=== PATIENT | female | born 1955 | race Caucasian/White ===

== ENCOUNTER → 2017-06-27 | Outpatient (CLI) | payer BC ==
--- NOTE | 2017-06-27 09:06 | CT ---
EXAMINATION TYPE: CT soft tissue neck w con DATE OF EXAM: 06/27/2017 HISTORY: Swelling, mass lump right side. Patient can currently not feel the lump and therefore no BB was placed. COMPARISON: 06/03/[address] DLP: 555.50 mGycm. Automated Exposure Control for Dose Reduction was Utilized. TECHNIQUE: CT scan of the neck is performed with IV Contrast, patient injected with 100 ml mL of Omn ipaque 300, axial images are obtained, coronal and sagittal reformatted images are reviewed. FINDINGS: Airway: Airways patent with no gross abnormality. Minimal dependent atelectasis is seen within the ri ght upper lobe. Parotid/submandibular glands: Parotids and submandibular glands are symmetric without surrounding inf lammatory change. Incidental note is made of extension of the left parotid gland anterior to the mass eter muscle. Carotid/Vascular Structures: Very minimal calcific atheromatous changes are seen of the common caroti d arteries. No significant stenosis within either visualized carotid arterial system. The vertebral a rteries are codominant and appear patent. No evidence of dissection, aneurysm or focal stenosis. Ther e is a normal anatomic branch pattern of the great vessels. Osseous Structures: There is slight rightward nasal bone deviation and middle turbinate nonobstructiv e jenelle bullosa. Paranasal sinuses are well aerated and their visualized portions as are the mastoid air cells. Mild multilevel degenerative changes demonstrated as uncovertebral hypertrophy and facet arthropathy are seen. No gross evidence of spinal canal stenosis. Osseous structures appear intact. N o prevertebral soft tissue swelling. Other: Few nonenlarged lymph nodes are seen surrounding the right submandibular gland and in the subm ental location, possibly related to the patient's abnormality. These measure up to 5 mm in short axis , within normal limits, and maintaining their normal reniform shape. Thyroid gland is unremarkable. N o supraclavicular adenopathy. Few nonenlarged anterior and posterior cervical chain lymph nodes are a lso visualized. Prominent but nonenlarged right paratracheal lymph node measures 8 mm in short axis. Scant residual t hymic tissue seen within the anterior superior mediastinum IMPRESSION: No CT finding to correspond to the patient's right neck swelling or palpable abnormality . Few nonenlarged submental and submandibular regular-appearing lymph nodes are noted.
== END | disposition home or self-care (01) ==
LOC: RADCTMAIN 08:02
PROVIDERS: ATTEND Otolaryngology
DX: R22.1 Localized swelling, mass and lump, neck (principal)
CPT/HCPCS: 70491; Q9967

== ENCOUNTER 2017-12-19 09:12 | Emergency (ER) | payer BC ==
[2017-12-19] MEDS ORDERED: ASPIRIN 81 MG PO STA (09:33)
[2017-12-19] MEDS ORDERED: MORPHINE SULFATE 2 MG/ML SYRINGE IVP STA (09:33)
[2017-12-19] MEDS ORDERED: NITROGLYCERIN OINT 1 INCH/GM PACKET TOPICAL STA (09:33)
[2017-12-19] MEDS ORDERED: SODIUM CHLORIDE 0.9% 1,000 ML IV STA (09:33)
[2017-12-19] MEDS ORDERED: ONDANSETRON 4 MG/2 ML VIAL IVP STA (09:33)
--- NOTE | 2017-12-19 10:33 | XR ---
EXAMINATION TYPE: XR chest 2V DATE OF EXAM: 12/19/2017 COMPARISON: 05/27/2016 TECHNIQUE: PA and lateral views submitted. HISTORY: Chest pain FINDINGS: The lungs are clear and there is no pneumothorax, pleural effusion, or focal pneumonia. Somewhat co arsened interstitium can be associated with chronic interstitial lung disease or bronchitis. Hypertro phic change of the spine noted. Diffuse osteopenia and arthropathy of the shoulders. IMPRESSION: 1. Coarsened interstitium can be associated with bronchitis or interstitial lung disease correlate cl inically..
[2017-12-19 10:35] LABS: ALT 30 U/L (9-52); AST 23 U/L (14-36); Albumin 4.1 g/dL (3.5-5.0); Alkaline Phosphatase 89 U/L (38-126); Anion Gap 9 mmol/L; Blood Urea Nitrogen 23 mg/dL (7-17); Calcium 9.6 mg/dL (8.4-10.2); Carbon Dioxide 27 mmol/L (22-30); Chloride 106 mmol/L (98-107); Glucose 89 mg/dL (74-99); Magnesium 2.1 mg/dL (1.6-2.3); Potassium 4.7 mmol/L (3.5-5.1); Sodium 142 mmol/L (137-145); Total Bilirubin 0.3 mg/dL (0.2-1.3); Total Protein 6.8 g/dL (6.3-8.2)
[2017-12-19 10:37] LABS: INR 1.1 (<1.2); Partial Thromboplastin Time 23.7 sec (22.0-30.0); Prothrombin Time 10.5 sec (9.0-12.0)
[2017-12-19 10:48] LABS: Basophils # (A) 0.1 k/uL (0-0.2); Basophils % (A) 1 %; Creatine Kinase 79 U/L (30-135); Eosinophils # (A) 0.1 k/uL (0-0.7); Eosinophils % (A) 2 %; HCT 40.5 % (34.0-46.0); HGB 12.7 gm/dL (11.4-16.0); Lymphocytes # (A) 3.7 k/uL (1.0-4.8); Lymphocytes % (A) 47 %; MCHC 31.5 g/dL (31.0-37.0); MCV 95.4 fL (80.0-100.0); Mean Platelet Volume 9.8; Monocytes # (A) 0.4 k/uL (0-1.0); Monocytes % (A) 6 %; Neutrophils # (A) 3.4 k/uL (1.3-7.7); Neutrophils % (A) 42 %; Platelet Count 285 k/uL (150-450); RBC 4.24 m/uL (3.80-5.40); RDW 14.2 % (11.5-15.5)
[2017-12-19 11:01] LABS: Creatine Kinase MB 0.6 ng/mL (0.0-2.4); Troponin I <0.012 ng/mL (0.000-0.034)
[2017-12-19 11:21] LABS: D-Dimer 0.73 mg/L FEU (<0.60)
--- NOTE | 2017-12-19 14:33 | ED ---
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., She has no history of heart disease she is also short winded and pain gets worse when she takes a deep breath pain is over 10 right now she denies any tobacco use no alcohol use her mom had heart disease late in the 80s of system is otherwise negative - Related Data Home Medications Medication Instructions Recorded Confirmed No Known Home Medications [No 12/19/17 12/19/17 Known Home Medications] Allergies Allergy/AdvReac Type Severity Reaction Status Date / Time cortisone Allergy Unknown Verified 12/19/17 11:35 Sulfa (Sulfonamide Allergy Unknown Verified 12/19/17 11:35 Antibiotics) Review of Systems ROS Statement: Those systems with pertinent positive or pertinent negative responses have been documented in the HPI. ROS Other: All systems not noted in ROS Statement are negative. Past Medical History Additional Past Medical History / Comment(s): neuropathy History of Any Multi-Drug Resistant Organisms: None Reported Past Surgical History: Adenoidectomy, Appendectomy, Section, Orthopedic Surgery, Tonsillectomy Additional Past Surgical History / Comment(s): splenectomy,cataract Past Psychological History: No Psychological Hx Reported Smoking Status: Never smoker Past Alcohol Use History: None Reported Past Drug Use History: None Reported General Exam - General Exam Comments Initial Comments: General: The patient is awake and alert, in no distress, and does not appear acutely ill. Skin: Skin is warm and dry and no rashes or lesions are noted. Eye: Pupils are equal, round and reactive to light, extra-ocular movements are intact; there is normal conjunctiva bilaterally. Ears, nose, mouth and throat: There are moist mucous membranes and no oral lesions. Neck: The neck is supple, there is no tenderness or JVD. Cardiovascular: There is a regular rate and rhythm. No murmur, rub or gallop is appreciated. Respiratory: To auscultation bilateral, no wheezing no rhonchi no distress respiratory jean noticed Gastrointestinal: Soft, non-distended, non-tender abdomen without masses or organomegaly noted. There is no rebound or guarding present. Bowel sounds are unremarkable. Back: There is no tenderness to palpation in the midline. There is no obvious deformity. Musculoskeletal: Normal ROM, no tenderness, There is no pedal edema. There is no calf tenderness or swelling. No cords were appreciated. Neurological: CN II-XII intact, Cranial nerves III through XII are intact. There are no obvious motor or sensory deficits. Coordination appears grossly intact. Speech is normal. Psychiatric: Cooperative, appropriate mood & affect, normal judgment. Limitations: no limitations Course Vital Signs 12/19/17 12/19/17 09:14 13:22 Temperature 97.8 F Pulse Rate 54 L 76 Respiratory 20 18 Rate Blood Pressure 129/74 130/80 O2 Sat by Pulse 99 97 Oximetry EKG is sinus bradycardia ventricular rate is 59 MA interval is 156 QRS duration is 88 QT/QTc is 434/429 This EKG does not reveal any ST elevation - Reevaluation(s) Reevaluation #1: CT angiogram to rule out pulmonary embolism is still pending, and disposition will be done as soon as CT edges report is available 12/19/17 14:31 12/19/17 14:40 CT angiogram is available at 1440, is negative she still have some chest discomfort but it's the same chest discomfort discomfort she had for last for 5 days I offered her admission observation and cardiology consult with the 3 sets of cardiac markers she prefers to see machine shop worker as outpatient Disposition Clinical Impression: Chest pain, Elevated d-dimer Disposition: HOME SELF-CARE Condition: Good Instructions: Chest Pain (ED) Additional Instructions: Aspirin 81 mg by mouth daily Is patient prescribed a controlled substance at d/c from ED?: No Referrals: Jluis Luna MD [Primary Care Provider] - 1-2 days Satish Cardenas MD [STAFF PHYSICIAN] - 1-2 days
--- NOTE | 2017-12-19 14:35 | CT ---
EXAMINATION TYPE: CT angio chest DATE OF EXAM: 12/19/2017 COMPARISON: MR of the abdomen October 2013 HISTORY: Chest pain x [address] DLP: 601 mGycm. Automated Exposure Control for Dose Reduction was Utilized. CONTRAST: CTA scan of the thorax is performed with IV Contrast, patient injected with 100 mL of Isovue 370, pul monary embolism protocol. MIP Images are created on CT scanner and reviewed. FINDINGS: LUNGS: Dependent atelectasis in both bases is present. There is slightly elevated left hemidiaphragm. There is no suspicious parenchymal nodule or mass. There is additional linear scarring and/or atelec tasis in the lingula near diaphragm. There is no pleural effusion or pneumothorax seen bilaterally. N o suspicious consolidation is present. The tracheobronchial tree is patent. MEDIASTINUM: There is satisfactory enhancement of the pulmonary artery and its branches, there is no CT evidence for pulmonary embolism. There are no greater than 1 cm hilar or mediastinal lymph nodes. No cardiomegaly or pericardial effusion is seen. OTHER: There is partial visualization of 6.1 cm low dense round lesion laterally upper to mid pole le axel left kidney favoring simple cyst which correlates with prior MRI abdomen. There is 5.7 x 5.0 cm l obulated low dense lesion in liver redemonstrated which correlates with hemangioma on prior MRI abdom en. IMPRESSION: No CT evidence for acute pulmonary embolism. No suspicious acute pulmonary process.
[2017-12-19 15:22] VITALS: BP 131/85; PULSE 75; RESP 16; TEMP 97.7
== END 2017-12-19 15:21 | disposition home or self-care (01) ==
LOC: EC 09:12
DX: R07.81 Pleurodynia (principal); R79.89 Other specified abnormal findings of blood chemistry; Z88.2 Allergy status to sulfonamides; Z88.8 Allergy status to other drugs, medicaments and biological substances
CPT/HCPCS: 99285; 96374; 96375; 96361 ×5; 36415; 93005; 85379; 80053; 82550; 82553; 83735; 84484; 85025; 85610; 85730; 71046; 71275; J2405; J2270; Q9967

== ENCOUNTER → 2018-10-02 | Outpatient (CLI) | payer BC ==
--- NOTE | 2018-10-02 08:26 | XR ---
EXAM TYPE: LUMBAR SPINE X RAY SERIES COMPARISON: NONE HISTORY: Low back pain TECHNIQUE: 4 views are submitted. FINDINGS: Alignment is anatomic. The pedicles are intact. The transverse processes are intact. There is slig ht curvature the spine with multilevel degenerative disc disease and facet arthropathy. IMPRESSION: 1. Multilevel degenerative disc disease and facet arthropathy recommend follow-up MRI.
== END | disposition home or self-care (01) ==
LOC: RADXRMAIN 07:59
PROVIDERS: ATTEND Physician Assistant
DX: M51.36 Other intervertebral disc degeneration, lumbar region (principal); M46.96 Unspecified inflammatory spondylopathy, lumbar region
CPT/HCPCS: 72100

== ENCOUNTER → 2018-10-05 | Outpatient (CLI) | payer BC ==
[2018-10-05 08:04] LABS: Basophils # (A) 0.1 k/uL (0-0.2); Basophils % (A) 1 %; Eosinophils # (A) 0.2 k/uL (0-0.7); Eosinophils % (A) 2 %; HCT 40.7 % (34.0-46.0); HGB 12.5 gm/dL (11.4-16.0); Hypochromasia Slight; Lymphocytes # (A) 3.2 k/uL (1.0-4.8); Lymphocytes % (A) 35 %; MCH 29.1 pg (25.0-35.0); MCHC 30.7 g/dL (31.0-37.0); MCV 94.6 fL (80.0-100.0); Mean Platelet Volume 9.5; Monocytes # (A) 0.6 k/uL (0-1.0); Monocytes % (A) 7 %; Neutrophils # (A) 4.9 k/uL (1.3-7.7); Neutrophils % (A) 54 %; Platelet Count 280 k/uL (150-450); RDW 14.2 % (11.5-15.5); WBC 9.2 k/uL (3.8-10.6)
[2018-10-05 16:31] LABS: Albumin 4.2 g/dL (3.80-4.90); Anion Gap 9.5 mmol/L (4.00-12.00); Calcium 9.3 mg/dL (8.7-10.3); Carbon Dioxide 26.5 mmol/L (21.6-31.8); Globulin 2.1 g/dL (1.6-3.3); LDL Cholesterol,Calculated 131.4 mg/dL (0.0-131.0); Potassium 4.5 mmol/L (3.5-5.5); Total Bilirubin 0.4 mg/dL (0.2-1.2); Total Protein 6.3 g/dL (6.2-8.2); VLDL Calculation 15.6 mg/dL (5.00-40.00)
[2018-10-05 16:38] LABS: T4, Free (Free Thyroxine) 0.9 ng/dL (0.80-1.80)
== END | disposition home or self-care (01) ==
LOC: LABWHC1 07:01
PROVIDERS: ATTEND Physician Assistant
DX: E78.5 Hyperlipidemia, unspecified (principal); R53.83 Other fatigue
CPT/HCPCS: 36415; 80053; 80061; 84439; 84443; 84481; 85025

== ENCOUNTER → 2018-10-13 | Outpatient (CLI) | payer BC ==
--- NOTE | 2018-10-14 09:53 | MM ---
Reason for exam: screening (asymptomatic). Last mammogram was performed 3 years and 1 month ago. History: Patient is postmenopausal. Taking estrogen for 5 years. Physical Findings: A clinical breast exam by your physician is recommended on an annual basis and results should be correlated with mammographic findings. MG Screening Mammo w CAD Bilateral CC and MLO view(s) were taken. Prior study comparison: September 11, 2015, bilateral MG 3d screening mammo w/cad. September 07, 2014, bilateral MG screening mammo w CAD. The breast tissue is heterogeneously dense. This may lower the sensitivity of mammography. There is no discrete abnormality. ASSESSMENT: Negative, BI-RAD 1 RECOMMENDATION: Routine screening mammogram of both breasts in 1 year.
== END | disposition home or self-care (01) ==
LOC: RADMAMWWP 09:02
PROVIDERS: ATTEND Family Medicine
DX: Z12.31 Encounter for screening mammogram for malignant neoplasm of breast (principal)
CPT/HCPCS: 77067

== ENCOUNTER → 2018-10-14 | Outpatient (CLI) | payer BC ==
--- NOTE | 2018-10-14 15:53 | MR ---
EXAMINATION TYPE: MR lumbar spine wo con DATE OF EXAM: 10/14/2018 COMPARISON: Correlation radiographs 10/02/2018. HISTORY: 62-year-old female Intervertebral disc degeneration, lumbar TECHNIQUE: Multiplanar, multisequence images of the lumbar spine were acquired. FINDINGS: There is a transitional lumbosacral segment. When correlating with the 10/02/2018 radiographs, suspect a left L5 hemisacral assimilation joint. Hypertrophic facet arthropathy mid to lower lumbar spine with trace grade 1 anterolisthesis at L4-L5. Mild multilevel degenerative disc disease with variable disc desiccation. Moderate disc height loss a t L3-L4. Mild disc bulging is present with no large focal disc herniation. Conus medullaris is normal. Mild heterogeneity of marrow signal without suspicious bone marrow replacement. At T12-L1, no canal or foraminal stenosis. L1-L2, no canal or foraminal stenosis. At L2-L3, facet arthropathy, right greater than left without significant canal or foraminal stenosis. At L3-L4, facet arthropathy and minimal bulging disc. Changes result in mild bilateral neuroforaminal stenosis without significant spinal canal stenosis. At L4-L5, there is advanced hypertrophic facet arthropathy with trace grade 1 anterolisthesis. No sig nificant canal or foraminal stenosis. L5-S1, no significant canal or foraminal stenosis. There is accentuated mid to lower lumbar lordosis. There is a very large left renal cyst measuring up to 8.7 cm. IMPRESSION: 1. 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 2. Mild multilevel degenerative disc disease, more moderate at L3-L4. No large focal disc herniation or canal compromise. 3. Advanced hypertrophic facet arthropathy mid to lower lumbar spine, particularly at L4-L5 with trac e grade 1 anterolisthesis. 4. Mild bilateral neuroforaminal stenoses at L3-L4. No high-grade foraminal narrowing. 5. Very large left renal cyst measuring up to 8.7 cm.
== END | disposition home or self-care (01) ==
LOC: RADMRIMAIN 06:05
PROVIDERS: ATTEND Family Medicine
DX: Q76.49 Other congenital malformations of spine, not associated with scoliosis (principal); M48.061 Spinal stenosis, lumbar region without neurogenic claudication; M51.36 Other intervertebral disc degeneration, lumbar region; M46.96 Unspecified inflammatory spondylopathy, lumbar region
CPT/HCPCS: 72148

== ENCOUNTER → 2018-10-20 | Outpatient (CLI) | payer BC ==
--- NOTE | 2018-10-20 08:12 | US ---
EXAMINATION TYPE: US kidneys/renal and bladder DATE OF EXAM: 10/20/2018 COMPARISON: US & MRI CLINICAL HISTORY: N28.1 Cyst of Kidney. F/U left renal cyst EXAM MEASUREMENTS: Right Kidney: 10.3 x 4.9 x 4.9 cm Left Kidney: 9.3 x 6.0 x 5.3 cm Echogenic lesion right lobe of liver as seen on previous, larger in size= 6.2 x 5.0 cm Right Kidney: Appeared wnl, lower pole gassed out Left Kidney: No evidence of hydro, lower pole cyst as seen on previous has increase in size= 11.0 x 7 .2 x 8.9 cm Bladder: wnl Bilateral Jets seen: yes There is no evidence for hydronephrosis at this point in time. No nephrolithiasis is seen. No solid masses are identified. The urinary bladder is anechoic. Bilateral ureteral jets are seen. IMPRESSION: 1. Enlarging echogenic lesion right lobe of the liver. 2. Enlarging cyst lower pole left kidney.
== END | disposition home or self-care (01) ==
LOC: RADUSWWP 06:59
PROVIDERS: ATTEND Family Medicine
DX: N28.1 Cyst of kidney, acquired (principal); K76.9 Liver disease, unspecified
CPT/HCPCS: 76770

== ENCOUNTER → 2020-01-18 | Outpatient (CLI) | payer BC ==
--- NOTE | 2020-01-19 09:54 | MM ---
Reason for exam: screening (asymptomatic). Last mammogram was performed 1 year and 3 months ago. History: Patient is postmenopausal. Took estrogen for 5 years. Physical Findings: A clinical breast exam by your physician is recommended on an annual basis and results should be correlated with mammographic findings. MG Screening Mammo w CAD Bilateral CC and MLO view(s) were taken. Prior study comparison: October 13, 2018, bilateral MG screening mammo w CAD. September 11, 2015, bilateral MG 3d screening mammo w/cad. The breast tissue is heterogeneously dense. This may lower the sensitivity of mammography. Finding: There is a 5 mm equal density (isodense) mass in the lower outer quadrant of the right breast. There is a chronic nodularity bilaterally, stable. ASSESSMENT: Incomplete: need additional imaging evaluation, BI-RAD 0 RECOMMENDATION: Special view mammogram of the right breast. If lesion persists on supplemental views, image directed ultrasound is recommended. [facility] will attempt to contact patient to return for supplemental views and ultrasound if indicated.
== END | disposition home or self-care (01) ==
LOC: RADMAMWWP 15:42
PROVIDERS: ATTEND Internal Medicine
DX: Z12.31 Encounter for screening mammogram for malignant neoplasm of breast (principal)
CPT/HCPCS: 77067

== ENCOUNTER → 2020-04-14 | Outpatient (CLI) | payer OTHER ==
--- NOTE | 2020-04-14 09:45 | XR ---
EXAM TYPE: LUMBAR SPINE X RAY SERIES COMPARISON: 10/02/2018 HISTORY: Back pain TECHNIQUE: 4 views are submitted. FINDINGS: Diffuse osteopenia with hypertrophic change of the spine. Grade 1 anterolisthesis L4 on L5. Multileve l facet arthropathy. Degenerative disc disease L2-L4. No compression deformities. Multilevel facet ar thropathy. IMPRESSION: 1. Diffuse osteopenia with multilevel hypertrophic and degenerative changes with grade 1 anterolisthe sis L4 and L5..
--- NOTE | 2020-04-14 09:50 | XR ---
EXAMINATION TYPE: XR foot complete LT DATE OF EXAM: 04/14/2020 COMPARISON: NONE HISTORY: Pain TECHNIQUE: Three views are submitted. FINDINGS: The osseous structures are intact. There is no acute fracture or dislocation. Joint spaces are p reserved. Narrowing of the first MTP noted. Diffuse osteopenia. Small calcaneal spur. IMPRESSION: 1. No acute fracture or dislocation. If symptoms persist, follow-up exam in 7 to 10 days could be ob tained.
== END | disposition home or self-care (01) ==
LOC: RADXRMAIN 07:03
PROVIDERS: ATTEND Internal Medicine
DX: M43.16 Spondylolisthesis, lumbar region (principal); M47.816 Spondylosis without myelopathy or radiculopathy, lumbar region; M85.88 Other specified disorders of bone density and structure, other site; M79.672 Pain in left foot
CPT/HCPCS: 72110

== ENCOUNTER → 2020-07-28 | Outpatient (CLI) | payer OTHER | END | disposition home or self-care (01) | LOC: RADMAMWWP 07:42 | PROVIDERS: ATTEND Internal Medicine | DX: Z53.9 Procedure and treatment not carried out, unspecified reason (principal) ==

== ENCOUNTER → 2020-08-09 | Outpatient (CLI) | payer OTHER ==
--- NOTE | 2020-08-10 13:39 | ECHOF ---
Referral Reason:R06.02 SOB R00.2 palpitations MEASUREMENTS -------- HEIGHT: 162.6 cm WEIGHT: 105.2 kg BP: IVSd: 1.0 cm (0.6 - 1.1) LVIDd: 4.5 cm (3.9 - 5.3) LVPWd: 1.2 cm (0.6 - 1.1) IVSs: 1.5 cm LVIDs: 3.0 cm LVPWs: 1.5 cm LAESV Index (A-L): 34.07 ml/m Ao Diam: 3.5 cm (2.0 - 3.7) AV Cusp: 2.1 cm (1.5 - 2.6) MV EXCURSION: 22.213 mm (> 18.000) MV EF SLOPE: 123 mm/s (70 - 150) EPSS: 0.2 cm MV E Raulito: 0.96 m/s MV DecT: 198 ms MV A Raulito: 0.71 m/s MV E/A Ratio: 1.35 RAP: 5.00 mmHg RVSP: 31.86 mmHg FINDINGS -------- Sinus rhythm. This was a technically adequate study. LV size, wall thickness and systolic function are normal, with an EF greater than 55%. The left brooke tricular size is normal. The diastolic filling pattern is normal for the age of the patient 8.91. The right ventricle is normal in size. LA is moderately dilated 34-39 ml/m2 The right atrial size is normal. The aortic valve is trileaflet, and appears structurally normal. No aortic stenosis or regurgitation. The mitral valve is normal. Mild mitral regurgitation is present. The tricuspid valve appears structurally normal. Mild tricuspid regurgitation present. Right vent ricular systolic pressure is normal at < 35 mmHg. There is no pulmonic regurgitation present. The aortic root size is normal. There is no pericardial effusion. CONCLUSIONS -------- 1. LV size, wall thickness and systolic function are normal, with an EF greater than 55%. 2. LA is moderately dilated 34-39 ml/m2 3. The aortic valve is trileaflet, and appears structurally normal. No aortic stenosis or regurgitati on. 4. Mild mitral regurgitation is present. 5. Mild tricuspid regurgitation present. 6. There is no pericardial effusion. JUNIOR ENGINEER: Jenna Shi RD
== END | disposition home or self-care (01) ==
LOC: RADECHMAIN 11:35
PROVIDERS: ATTEND Internal Medicine
DX: I08.1 Rheumatic disorders of both mitral and tricuspid valves (principal)
CPT/HCPCS: 93306

== ENCOUNTER → 2020-10-10 | Outpatient (CLI) | payer OTHER ==
--- NOTE | 2020-10-10 13:58 | MM ---
Reason for exam: follow-up at short interval from prior study. Last mammogram was performed 9 months ago. History: Patient is postmenopausal. Took estrogen for 5 years. Physical Findings: Nurse did not find any significant physical abnormalities on exam. MG Diagnostic Mammo RT w CAD CC and MLO view(s) were taken of the right breast. Prior study comparison: January 24, 2020, right breast MG work up mamm w CAD RT. January 18, 2020, bilateral MG screening mammo w CAD. The breast tissue is heterogeneously dense. This may lower the sensitivity of mammography. Small isodense nodularity posterior lateral right breast unchanged for 9 months. Patient late for 6 month follow up. Reassess at 1 year interval. These results were verbally communicated with the patient and result sheet given to the patient on 10/10/20. ASSESSMENT: Probably benign, BI-RAD 3 RECOMMENDATION: Follow-up diagnostic mammogram of both breasts in 3 months. Manage on a clinical basis with regard to right breast tenderness, pain.
== END | disposition home or self-care (01) ==
LOC: RADMAMWWP 12:57
PROVIDERS: ATTEND Internal Medicine
DX: R92.2 Inconclusive mammogram (principal)
CPT/HCPCS: 77065

== ENCOUNTER → 2021-01-10 | Outpatient (CLI) | payer OTHER ==
--- NOTE | 2021-01-10 11:03 | MM ---
Reason for exam: additional evaluation requested from prior study. Last mammogram was performed 3 months ago. History: Patient is postmenopausal. Took estrogen for 5 years. Physical Findings: Nurse did not find any significant physical abnormalities on exam. MG Diagnostic Mammo w CAD [place] Bilateral CC and MLO view(s) were taken. Prior study comparison: October 10, 2020, right breast MG diagnostic mammo RT w CAD. January 24, 2020, right breast MG work up mamm w CAD RT. January 18, 2020, bilateral MG screening mammo w CAD. October 13, 2018, bilateral MG screening mammo w CAD. There are scattered fibroglandular densities. There is a small asymmetry in the inferior right breast at middle depth unchanged since December 2019 and not seen on ultrasound. 12 month follow up diagnostic mammogram recommended. These results were verbally communicated with the patient and result sheet given to the patient on 01/10/21. ASSESSMENT: Probably benign, BI-RAD 3 RECOMMENDATION: Follow-up diagnostic mammogram of both breasts in 1 year.
== END | disposition home or self-care (01) ==
LOC: RADMAMWWP 09:49
PROVIDERS: ATTEND Internal Medicine
DX: R92.8 Other abnormal and inconclusive findings on diagnostic imaging of breast (principal); Z78.0 Asymptomatic menopausal state; Z79.818 Long term (current) use of other agents affecting estrogen receptors and estrogen levels
CPT/HCPCS: 77066

== ENCOUNTER 2022-10-08 15:37 | Observation (INO) | payer MEDICARE, OTHER ==
--- NOTE | 2022-10-08 16:51 | ED ---
Fever HPI - General Chief Complaint: Fever Stated Complaint: sick Time Seen by Provider: 10/08/22 16:39 Source: patient, RN notes reviewed, old records reviewed Mode of arrival: ambulatory Limitations: no limitations - History of Present Illness Initial Comments: This is a 66-year-old female to the ER today. Patient presents today for evaluation regards to fever. 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 Patient has not had an issue of a febrile illness since her spleen was removed. His other traumatic surgical event. Patient is presenting for fever not feeling well bodyaches pains patient has not been feeling well for 2 days states currently very dehydrated and lethargic decreased appetite and has not been persistent and activities of daily living. Patient has no significant medical history otherwise surgical history MD Complaint: fever, malaise, weakness, other (Bodyaches and pains) -: hour(s) Temperature Source: subjective Context: on immunosuppressant(s) (Patient is immunosuppressed secondary to sp lenectomy) Associated Symptoms: chills, rigors, myalgias, sore throat Treatments Prior to Arrival: Acetaminophen - Related Data Home Medications Medication Instructions Recorded Confirmed Bio D Mulsion Forte Supplement 1 tab PO AC-BRKFST 10/08/22 10/08/22 Bio-C Plus 1000 Supplement 1 tab PO BID-W/MEALS 10/08/22 10/08/22 Diclofenac Sodium 50 mg PO TID-W/MEALS 10/08/22 10/08/22 Healthy Bones Supplement 1 tab PO BID-W/MEALS 10/08/22 10/08/22 Immutone Supplement 1 tab PO W/LUNCH 10/08/22 10/08/22 Iosol Supplement 4 tab PO W/BRKFST 10/08/22 10/08/22 Levothyroxine Sodium [Synthroid] 50 mcg PO DAILY 10/08/22 10/08/22 Magnesium Plus (Unknown Strength) 1 tab PO BID-W/MEALS 10/08/22 10/08/22 Enzo-Stim Supplement 1 tab PO W/BRKFST 10/08/22 10/08/22 Enzo-Stim Supplement 2 tab PO W/LUNCH 10/08/22 10/08/22 [id number] Supplement 1 dose PO DAILY 10/08/22 10/08/22 Sym-Pack Supplement 1 tab PO BID-W/MEALS 10/08/22 10/08/22 Thyrostim Supplement 1 tab PO W/BRKFST 10/08/22 10/08/22 Allergies Allergy/AdvReac Type Severity Reaction Status Date / Time cortisone Allergy Unknown Verified 10/08/22 19:49 Sulfa (Sulfonamide Allergy Unknown Verified 10/08/22 19:49 Antibiotics) Childhood Review of Systems ROS Statement: Those systems with pertinent positive or pertinent negative responses have been documented in the HPI. ROS Other: All systems not noted in ROS Statement are negative. Past Medical History Past Medical History: Thyroid Disorder Additional Past Medical History / Comment(s): neuropathy History of Any Multi-Drug Resistant Organisms: None Reported Past Surgical History: Adenoidectomy, Appendectomy, Section, Orthopedic Surgery, Tonsillectomy Additional Past Surgical History / Comment(s): splenectomy,cataract Past Psychological History: No Psychological Hx Reported Smoking Status: Never smoker Past Alcohol Use History: None Reported Past Drug Use History: None Reported General Exam Limitations: no limitations General appearance: alert, in no apparent distress Head exam: Present: atraumatic, normocephalic, normal inspection Eye exam: Present: normal appearance, PERRL, EOMI. Absent: scleral icterus, conjunctival injection, periorbital swelling ENT exam: Present: normal exam, mucous membranes moist Neck exam: Present: normal inspection. Absent: tenderness, meningismus, lymphadenopathy Respiratory exam: Present: normal lung sounds bilaterally. Absent: respiratory distress, wheezes, rales, rhonchi, stridor Cardiovascular Exam: Present: regular rate, normal rhythm, normal heart sounds. Absent: systolic murmur, diastolic murmur, rubs, gallop, clicks GI/Abdominal exam: Present: soft, normal bowel sounds. Absent: distended, tenderness, guarding, rebound, rigid Extremities exam: Present: normal inspection, full ROM, normal capillary refill. Absent: tenderness, pedal edema, joint swelling, calf tenderness Back exam: Present: normal inspection Neurological exam: Present: alert, oriented X3, CN II-XII intact Psychiatric exam: Present: normal affect, normal mood Skin exam: Present: warm, dry, intact, normal color. Absent: rash Course Vital Signs 10/08/22 10/08/22 10/08/22 16:29 17:58 18:00 Temperature 98.8 F Pulse Rate 85 72 68 Respiratory 20 20 16 Rate Blood Pressure 146/83 141/88 145/90 O2 Sat by Pulse 94 L 98 98 Oximetry 10/08/22 10/08/22 19:00 20:00 Temperature Pulse Rate 66 80 Respiratory 20 16 Rate Blood Pressure 148/88 140/80 O2 Sat by Pulse 98 95 Oximetry - Reevaluation(s) Reevaluation #1: 10/08/22 19:25 Medical records reviewed Reevaluation #2: 10/08/22 19:25 Patient symptoms are improved Reevaluation #3: 10/08/22 19:25 Patient is informed of results and questions are answered Reevaluation #4: 10/08/22 19:25 Was pt. sent in by a medical professional or institution? @ -[by , PA, TALLOW MAKER, urgent care, hospital, or jail] Did you speak to anyone other than the patient for history? @ -[EMS, parent, family, police, friend?] Did you review nursing and triage notes? @ -[agree or disagree, why?] Were old charts reviewed? @ -[outside hosp., previous admissions, EMS record, old EKG, old radiological studies, urgent care reports/EKGs, jail records?] Differential Diagnosis? @ -[chest pain, altered mental status abdominal pain women, abdominal pain men, vaginal bleeding, weakness, fever, dyspnea, syncope, headache, dizziness, GI bleed, back pain, seizure] EKG interpreted by me (3pts min.)? @ -[none] X-rays interpreted by me (1pt min.)? @ -[none] CT interpreted by me (1pt min.)? @ -[none] U/S interpreted by me (1pt. min.)? @ -[none] What testing was considered but not performed? (CT, X-rays, U/S, labs)? Why? @ [CT, X-rays, U/S, labs? Why?] What meds were considered but not given? Why? @ -[none] Did you discuss the management of the patient with other professionals? @ -[professionals i.e. , PA, TALLOW MAKER, Lab, RT, Psych Nurse, Programmer Operator Numerical Control, Obstetrician Gynecologist, Teacher, Electron Microprobe Operator, housing case manager? Give summary] Did you reconcile home meds? @ -[none] Was smoking cessation discussed for >3mins.? @ -[none] Was critical care preformed (if so, how long)? @ -[none] Were there social determinants of health that impacted care today? How? (Homelessness, low income, unemployed, alcoholism, drug addiction, transportation, low edu. Level, literacy, decrease access to med. care, skilled nursing, rehab)? @ -[Homelessness, low income, unemployed, alcoholism, drug addiction, transportation, low edu. Level, literacy, decrease access to med. care, skilled nursing, rehab?] Was there de-escalation of care discussed even if they declined? (Discuss DNR or withdrawal of care, Hospice)? @ -[Discuss DNR or withdrawal of care, Hospice?] What co-morbidities impacted this encounter? (DM, HTN, Smoking, COPD, CAD, Cancer, CVA, Hep., AIDS, mental health diagnosis, sleep apnea, morbid obesity)? @ -[DM, HTN, Smoking, COPD, CAD, Cancer, CVA, Hep., AIDS, mental health diagnosis, sleep apnea, morbid obesity?] Was patient admitted / discharged? @ -[hospital course] Undiagnosed new problem with uncertain prognosis? @ -[none] Drug Therapy requiring intensive monitoring for toxicity (Heparin, Nitro, Insulin, Cardizem)? @ -[none] Were any procedures done? @ -[none] Diagnosis/symptom? @ -[default] Acute, or Chronic, or Acute on Chronic? @ -[default] Uncomplicated (without systemic symptoms) or Complicated (systemic symptoms)? @ -[default] Side effects of treatment? @ -[none] Exacerbation, Progression, or Severe Exacerbation] @ -[no] Poses a threat to life or bodily function? @ -[no] Reevaluation #5: 10/08/22 19:25 Differential Fever: Pneumonia, viral URI, endocarditis, myocarditis, pericarditis, otitis, si nusitis, peritonsillar Abscess, retropharyngeal Abscess, epiglottitis, peritonitis, appendicitis, Dorie cystitis, diverticulitis, hepatitis, colitis, UTI, PID, TOA, pyelonephritis, prostatitis, epididymitis, meningitis, encephalitis, pulmonary embolism, CVA, thyroid storm, pancreatitis, adrenal brian is, cavernous sinus thrombosis, this is not meant to be an all-inclusive list. - Consultations Consultation #1: Spoke with admitting physician who agrees to admit the patient Medical Decision Making - Medical Decision Making 66 female presents today for evaluation of not feeling well headache body pains bodyaches and pains. Pain sore throat cough. Patient coronavirus under concern for history of splenic injury. Patient will await blood cultures and place on antibiotics - Lab Data Result diagrams: 10/08/22 17:50 10/08/22 17:50 Lab Results 10/08/22 10/08/22 10/08/22 Range/Units 16:52 16:52 17:50 WBC 6.6 (3.8-10.6) k/uL RBC 4.22 (3.80-5.40) m/uL Hgb 12.9 (11.4-16.0) gm/dL Hct 39.4 (34.0-46.0) % MCV 93.5 (80.0-100.0) fL MCH 30.5 (25.0-35.0) pg MCHC 32.6 (31.0-37.0) g/dL RDW 13.7 (11.5-15.5) % Plt Count 208 (150-450) k/uL MPV 12.5 Neutrophils % 62 % Lymphocytes % 21 % Monocytes % 12 % Eosinophils % 1 % Basophils % 1 % Neutrophils # 4.1 (1.3-7.7) k/uL Lymphocytes # 1.4 (1.0-4.8) k/uL Monocytes # 0.8 (0-1.0) k/uL Eosinophils # 0.1 (0-0.7) k/uL Basophils # 0.0 (0-0.2) k/uL ESR 13 (0-20) mm/hr PT (9.0-12.0) sec INR (<1.2) APTT (22.0-30.0) sec Sodium (137-145) mmol/L Potassium (3.5-5.1) mmol/L Chloride (98-107) mmol/L Carbon Dioxide (22-30) mmol/L Anion Gap mmol/L BUN (7-17) mg/dL Creatinine (0.52-1.04) mg/dL Est GFR (CKD-EPI)AfAm (>60 ml/min/1.73 sqM) Est GFR (CKD-EPI)NonAf (>60 ml/min/1.73 sqM) Glucose (74-99) mg/dL Plasma Lactic Acid Arnel (0.7-2.0) mmol/L Calcium (8.4-10.2) mg/dL Phosphorus (2.5-4.5) mg/dL Magnesium (1.6-2.3) mg/dL Total Bilirubin (0.2-1.3) mg/dL AST (14-36) U/L ALT (4-34) U/L Alkaline Phosphatase (38-126) U/L Troponin I (0.000-0.034) ng/mL C-Reactive Protein (<1.0) mg/dL Total Protein (6.3-8.2) g/dL Albumin (3.5-5.0) g/dL Urine Color Yellow Urine Appearance Clear (Clear) Urine pH 5.5 (5.0-8.0) Ur Specific [place] 1.027 (1.001-1.035) Urine Protein 1+ H (Negative) Urine Glucose (UA) Negative (Negative) Urine Ketones 2+ H (Negative) Urine Blood Moderate H (Negative) Urine Nitrite Negative (Negative) Urine Bilirubin Negative (Negative) Urine Urobilinogen <2.0 (<2.0) mg/dL Ur Leukocyte Esterase Small H (Negative) Urine RBC 5 (0-5) /hpf Urine WBC 6 H (0-5) /hpf Ur Squamous Epith Cells 1 (0-4) /hpf Hyaline Casts 1 (0-2) /lpf Urine Mucus Many H (None) /hpf Influenza Type A (PCR) Not Detected (Not Detectd) Influenza Type B (PCR) Not Detected (Not Detectd) RSV (PCR) Not Detected (Not Detectd) SARS-CoV-2 (PCR) Detected A (Not Detectd) 10/08/22 10/08/22 10/08/22 Range/Units 17:50 17:50 17:50 WBC (3.8-10.6) k/uL RBC (3.80-5.40) m/uL Hgb (11.4-16.0) gm/dL Hct (34.0-46.0) % MCV (80.0-100.0) fL MCH (25.0-35.0) pg MCHC (31.0-37.0) g/dL RDW (11.5-15.5) % Plt Count (150-450) k/uL MPV Neutrophils % % Lymphocytes % % Monocytes % % Eosinophils % % Basophils % % Neutrophils # (1.3-7.7) k/uL Lymphocytes # (1.0-4.8) k/uL Monocytes # (0-1.0) k/uL Eosinophils # (0-0.7) k/uL Basophils # (0-0.2) k/uL ESR (0-20) mm/hr PT 11.2 (9.0-12.0) sec INR 1.1 (<1.2) APTT 24.8 (22.0-30.0) sec Sodium 139 (137-145) mmol/L Potassium 4.3 (3.5-5.1) mmol/L Chloride 103 (98-107) mmol/L Carbon Dioxide 26 (22-30) mmol/L Anion Gap 10 mmol/L BUN 15 (7-17) mg/dL Creatinine 0.76 (0.52-1.04) mg/dL Est GFR (CKD-EPI)AfAm >90 (>60 ml/min/1.73 sqM) Est GFR (CKD-EPI)NonAf 83 (>60 ml/min/1.73 sqM) Glucose 91 (74-99) mg/dL Plasma Lactic Acid Arnel 0.9 (0.7-2.0) mmol/L Calcium 9.3 (8.4-10.2) mg/dL Phosphorus 4.4 (2.5-4.5) mg/dL Magnesium 1.9 (1.6-2.3) mg/dL Total Bilirubin 0.3 (0.2-1.3) mg/dL AST 32 (14-36) U/L ALT 24 (4-34) U/L Alkaline Phosphatase 79 (38-126) U/L Troponin I (0.000-0.034) ng/mL C-Reactive Protein 1.7 H (<1.0) mg/dL Total Protein 7.8 (6.3-8.2) g/dL Albumin 4.6 (3.5-5.0) g/dL Urine Color Urine Appearance (Clear) Urine pH (5.0-8.0) Ur Specific [place] (1.001-1.035) Urine Protein (Negative) Urine Glucose (UA) (Negative) Urine Ketones (Negative) Urine Blood (Negative) Urine Nitrite (Negative) Urine Bilirubin (Negative) Urine Urobilinogen (<2.0) mg/dL Ur Leukocyte Esterase (Negative) Urine RBC (0-5) /hpf Urine WBC (0-5) /hpf Ur Squamous Epith Cells (0-4) /hpf Hyaline Casts (0-2) /lpf Urine Mucus (None) /hpf Influenza Type A (PCR) (Not Detectd) Influenza Type B (PCR) (Not Detectd) RSV (PCR) (Not Detectd) SARS-CoV-2 (PCR) (Not Detectd) 10/08/22 Range/Units 17:50 WBC (3.8-10.6) k/uL RBC (3.80-5.40) m/uL Hgb (11.4-16.0) gm/dL Hct (34.0-46.0) % MCV (80.0-100.0) fL MCH (25.0-35.0) pg MCHC (31.0-37.0) g/dL RDW (11.5-15.5) % Plt Count (150-450) k/uL MPV Neutrophils % % Lymphocytes % % Monocytes % % Eosinophils % % Basophils % % Neutrophils # (1.3-7.7) k/uL Lymphocytes # (1.0-4.8) k/uL Monocytes # (0-1.0) k/uL Eosinophils # (0-0.7) k/uL Basophils # (0-0.2) k/uL ESR (0-20) mm/hr PT (9.0-12.0) sec INR (<1.2) APTT (22.0-30.0) sec Sodium (137-145) mmol/L Potassium (3.5-5.1) mmol/L Chloride (98-107) mmol/L Carbon Dioxide (22-30) mmol/L Anion Gap mmol/L BUN (7-17) mg/dL Creatinine (0.52-1.04) mg/dL Est GFR (CKD-EPI)AfAm (>60 ml/min/1.73 sqM) Est GFR (CKD-EPI)NonAf (>60 ml/min/1.73 sqM) Glucose (74-99) mg/dL Plasma Lactic Acid Arnel (0.7-2.0) mmol/L Calcium (8.4-10.2) mg/dL Phosphorus (2.5-4.5) mg/dL Magnesium (1.6-2.3) mg/dL Total Bilirubin (0.2-1.3) mg/dL AST (14-36) U/L ALT (4-34) U/L Alkaline Phosphatase (38-126) U/L Troponin I <0.012 (0.000-0.034) ng/mL C-Reactive Protein (<1.0) mg/dL Total Protein (6.3-8.2) g/dL Albumin (3.5-5.0) g/dL Urine Color Urine Appearance (Clear) Urine pH (5.0-8.0) Ur Specific [place] (1.001-1.035) Urine Protein (Negative) Urine Glucose (UA) (Negative) Urine Ketones (Negative) Urine Blood (Negative) Urine Nitrite (Negative) Urine Bilirubin (Negative) Urine Urobilinogen (<2.0) mg/dL Ur Leukocyte Esterase (Negative) Urine RBC (0-5) /hpf Urine WBC (0-5) /hpf Ur Squamous Epith Cells (0-4) /hpf Hyaline Casts (0-2) /lpf Urine Mucus (None) /hpf Influenza Type A (PCR) (Not Detectd) Influenza Type B (PCR) (Not Detectd) RSV (PCR) (Not Detectd) SARS-CoV-2 (PCR) (Not Detectd) - Radiology Data Radiology results: report reviewed (Chest x-rays negative for acute disease), image reviewed Critical Care Time Critical Care Time: Yes Total Critical Care Time: 31 Disposition Clinical Impression: Fever, Asplenia, Coronavirus infection Disposition: ADMITTED IP TO THIS HOSP Condition: Good Is patient prescribed a controlled substance at d/c from ED?: No
[2022-10-08] MEDS ORDERED: SODIUM CHLORIDE 0.9% 1,000 ML IV STA (16:52)
[2022-10-08 18:19] LABS: Basophils % (A) 1 %; Eosinophils # (A) 0.1 k/uL (0-0.7); Eosinophils % (A) 1 %; HCT 39.4 % (34.0-46.0); HGB 12.9 gm/dL (11.4-16.0); Lymphocytes # (A) 1.4 k/uL (1.0-4.8); Lymphocytes % (A) 21 %; MCH 30.5 pg (25.0-35.0); MCHC 32.6 g/dL (31.0-37.0); MCV 93.5 fL (80.0-100.0); Mean Platelet Volume 12.5; Monocytes # (A) 0.8 k/uL (0-1.0); Monocytes % (A) 12 %; Neutrophils # (A) 4.1 k/uL (1.3-7.7); Neutrophils % (A) 62 %; Platelet Count 208 k/uL (150-450); RBC 4.22 m/uL (3.80-5.40); RDW 13.7 % (11.5-15.5); WBC 6.6 k/uL (3.8-10.6)
[2022-10-08 18:21] LABS: Appearance,Urine Clear (Clear); Bilirubin,Urine Negative (Negative); Blood,Urine Moderate (Negative); Color,Urine Yellow; Glucose,Urine (UA) Negative (Negative); Hyaline Casts,Urine 1 /lpf (0-2); Ketones,Urine 2+ (Negative); Leukocyte Esterase,Urine Small (Negative); Mucus,Urine Many /hpf; Nitrite,Urine Negative (Negative); PH, Urine 5.5 (5.0-8.0); Protein,Urine 1+ (Negative); RBC,Urine 5 /hpf (0-5); Specific Gravity,Urine 1.027 (1.001-1.035); Squamous Epithelial Cell,Urine 1 /hpf (0-4); Urobilinogen,Urine <2.0 mg/dL (<2.0); WBC,Urine 6 /hpf (0-5)
[2022-10-08 18:27] LABS: INR 1.1 (<1.2); Partial Thromboplastin Time 24.8 sec (22.0-30.0); Prothrombin Time 11.2 sec (9.0-12.0)
[2022-10-08 18:32] LABS: ALT 24 U/L (4-34); AST 32 U/L (14-36); African American GFR (CKD) >90 (>60 ml/min/1.73 sqM); Albumin 4.6 g/dL (3.5-5.0); Alkaline Phosphatase 79 U/L (38-126); Anion Gap 10 mmol/L; Blood Urea Nitrogen 15 mg/dL (7-17); C Reactive Protein 1.7 mg/dL (<1.0); Calcium 9.3 mg/dL (8.4-10.2); Carbon Dioxide 26 mmol/L (22-30); Chloride 103 mmol/L (98-107); Glucose 91 mg/dL (74-99); Magnesium 1.9 mg/dL (1.6-2.3); Non-African American GFR(CKD) 83 (>60 ml/min/1.73 sqM); Phosphorus 4.4 mg/dL (2.5-4.5); Potassium 4.3 mmol/L (3.5-5.1); Sodium 139 mmol/L (137-145); Total Bilirubin 0.3 mg/dL (0.2-1.3); Total Protein 7.8 g/dL (6.3-8.2)
--- NOTE | 2022-10-08 18:32 | XR ---
EXAMINATION TYPE: XR chest 2V DATE OF EXAM: 10/08/2022 6:25 PM COMPARISON: Chest radiographs from 12/19/2017 TECHNIQUE: XR chest 2V Frontal and lateral views of the chest. CLINICAL INDICATION:Female, 66 years old with history of Weakness; FINDINGS: Lungs/Pleura: There is no evidence of pleural effusion, focal consolidation, or pneumothorax. Pulmonary vascularity: Unremarkable. Heart/mediastinum: Cardiomediastinal silhouette is unremarkable. Musculoskeletal: No acute osseous pathology. IMPRESSION: No acute cardiopulmonary disease/process.
[2022-10-08] MEDS ORDERED: SODIUM CHLORIDE 0.9% 500 ML 500 ML IV STA (18:39)
[2022-10-08] MEDS ORDERED: ONDANSETRON 4 MG/2 ML VIAL IVP PRN (18:43)
[2022-10-08] MEDS ORDERED: NALOXONE 0.4 MG/ML 1 ML VIAL IV PRN (18:43)
[2022-10-08] MEDS ORDERED: MORPHINE SULFATE 4 MG/ML SYRINGE IV PRN (18:43)
[2022-10-08] MEDS ORDERED: ACETAMINOPHEN IV (For NPO) 1,000 MG in EMPTY BAG 1 BAG IVPB STA (18:44)
[2022-10-08] MEDS ORDERED: diphenhydrAMINE 50 MG/ML 1 ML VIAL IVP PRN (18:44)
[2022-10-08] MEDS ORDERED: KETOROLAC 15 MG/ML 1 ML VIAL IVP STA (18:44)
[2022-10-08] MEDS ORDERED: diphenhydrAMINE 50 MG/ML 1 ML VIAL IVP STA (18:44)
[2022-10-08] MEDS: ACETAMINOPHEN TAB 500 MG TAB PO PRN (18:52)
[2022-10-08 19:38] LABS: Erythrocyte Sedimentation Rate 13 mm/hr (0-20)
[2022-10-08] MEDS: IBUPROFEN 600 MG TAB PO SCH (22:42)
[2022-10-09 06:29] VITALS: RESP 16
[2022-10-09] MEDS: IBUPROFEN 600 MG TAB PO SCH ×3 (09:54→21:42)
[2022-10-09] MEDS: ZINC SULFATE 220 MG CAP PO SCH (14:44)
[2022-10-09] MEDS: ASCORBIC ACID 500 MG TAB PO SCH (14:44)
[2022-10-09] MEDS: ENOXAPARIN 40 MG/0.4 ML SYRINGE SQ SCH (14:46)
--- NOTE | 2022-10-09 21:33 | P.CONS ---
History of Present Illness - Reason for Consult Consult date: 10/09/22 Fever, asplenia Requesting physician: Kj Quan - Chief Complaint Fever and not feeling well x 2 days - History of Present Illness Patient is a 66-year-old female with a past medical history taken for hypothyroidism the patient also have a splenectomy presenting to the ER for evaluation of fever patient mention started getting sick over the weekend p atient main symptom was feeling weak not feeling well he did have mild sore throat and a headache and on Friday that is yesterday patient did have a episodes of rigors and chills and a fever for the patient was encouraged to go to the hospital patient has been complaining of generalized body aches mild sore throat denies any chest pain or shortness with have any minimal cough some nausea but no vomiting no abdominal pain and episode of diarrhea here in the hospital patient on presentation to the hospital was afebrile and no fever has been recorded subsequently patient has been able to maintain her O2 sats between 94 to 97% on room air patient did have a normal white count kidney function was normal liver enzymes are normal CRP mild elevated 1.7 urine has been negative patient did have a positive COVID and influenza and RSV was negative chest x-ray was negative for any acute infiltrate the patient was started on Rocephin infectious disease was consulted for further management of antibiotic therapy Review of Systems Positive point has been mentioned in the HPI rest of the systems are negative Past Medical History Past Medical History: Thyroid Disorder Additional Past Medical History / Comment(s): neuropathy History of Any Multi-Drug Resistant Organisms: None Reported Past Surgical History: Adenoidectomy, Appendectomy, Section, Orthopedic Surgery, Tonsillectomy Additional Past Surgical History / Comment(s): splenectomy,cataract Past Psychological History: No Psychological Hx Reported Smoking Status: Never smoker Past Alcohol Use History: None Reported Past Drug Use History: None Reported Medications and Allergies Home Medications Medication Instructions Recorded Confirmed Type Bio D Mulsion Forte Supplement 1 tab PO AC-BRKFST 10/08/22 10/08/22 History Bio-C Plus 1000 Supplement 1 tab PO BID-W/MEALS 10/08/22 10/08/22 History Diclofenac Sodium 50 mg PO TID-W/MEALS 10/08/22 10/08/22 History Healthy Bones Supplement 1 tab PO BID-W/MEALS 10/08/22 10/08/22 History Immutone Supplement 1 tab PO W/LUNCH 10/08/22 10/08/22 History Iosol Supplement 4 tab PO W/BRKFST 10/08/22 10/08/22 History Levothyroxine Sodium [Synthroid] 50 mcg PO DAILY 10/08/22 10/08/22 History Magnesium Plus (Unknown Strength) 1 tab PO BID-W/MEALS 10/08/22 10/08/22 History Enzo-Stim Supplement 1 tab PO W/BRKFST 10/08/22 10/08/22 History Enzo-Stim Supplement 2 tab PO W/LUNCH 10/08/22 10/08/22 History [id number] Supplement 1 dose PO DAILY 10/08/22 10/08/22 History Sym-Pack Supplement 1 tab PO BID-W/MEALS 10/08/22 10/08/22 History Thyrostim Supplement 1 tab PO W/BRKFST 10/08/22 10/08/22 History Allergies Allergy/AdvReac Type Severity Reaction Status Date / Time cortisone Allergy Unknown Verified 10/08/22 19:49 Sulfa (Sulfonamide Allergy Unknown Verified 10/08/22 19:49 Antibiotics) Childhood Physical Exam Vitals: Vital Signs Temp Pulse Pulse Resp BP BP Pulse Ox 10/09/22 08:00 98.3 F 62 16 108/72 94 L 10/09/22 06:27 68 16 107/68 94 L 10/09/22 02:48 98.3 F 62 18 103/60 95 10/09/22 01:12 60 18 108/70 93 L 10/08/22 22:00 70 20 115/70 98 10/08/22 21:00 80 20 116/80 96 10/08/22 20:00 80 16 140/80 95 10/08/22 19:00 66 20 148/88 98 10/08/22 18:00 68 16 145/90 98 10/08/22 17:58 72 20 141/88 98 10/08/22 16:29 98.8 F 85 20 146/83 94 L Intake and Output 10/08/22 10/09/22 10/09/22 22:59 06:59 14:59 Intake Total 360 Balance 360 Intake: Oral 360 Other: Voiding Method Toilet # Voids 2 Weight 106.594 kg GENERAL DESCRIPTION: Elderly female up in the chair, no distress. No tachypnea or accessory muscle of respiration use. HEENT: Shows Pallor , no scleral icterus. Oral mucous membrane is dry. No pharyngeal erythema or thrush NECK: Trachea central, no thyromegaly. LUNGS: Unlabored breathing. Clear to auscultation anteriorly. No wheeze or crackle. HEART: S1, S2, regular rate and rhythm. No loud murmur ABDOMEN: Soft, no tenderness , guarding or rigidity, no organomegaly EXTREMITIES: No edema of feet. SKIN: No rash, no masses palpable. NEUROLOGICAL: The patient is awake, alert, oriented x3, mood and affect normal. Results CBC & Chem 7: 10/10/22 07:35 10/10/22 07:35 Labs: Abnormal Lab Results - Last 24 Hours (Table) 10/08/22 10/08/22 10/08/22 Range/Units 16:52 16:52 17:50 C-Reactive Protein 1.7 H (<1.0) mg/dL Urine Protein 1+ H (Negative) Urine Ketones 2+ H (Negative) Urine Blood Moderate H (Negative) Ur Leukocyte Esterase Small H (Negative) Urine WBC 6 H (0-5) /hpf Urine Mucus Many H (None) /hpf SARS-CoV-2 (PCR) Detected A (Not Detectd) Assessment and Plan (1) Coronavirus infection Current Visit: Yes Status: Acute Code(s): B34.2 - CORONAVIRUS INFECTION, UNSPECIFIED SNOMED Code(s): 278606196 (2) Fever Current Visit: Yes Status: Acute Code(s): R50.9 - FEVER, UNSPECIFIED SNOMED Code(s): 284507359 Plan: 1patient presented to hospital with fever rigors and chills generalized body aches headache mild URI symptoms and also have a mild cough secondary to COVID- 19 infection in this patient chest x-ray was negative for acute infiltrate patient not hypoxic or need for supplemental oxygen treatment is mostly supportive and clinically no evidence of any secondary bacterial pneumonia 2-discontinue Rocephin 3-we will obtain procalcitonin 4-patient started on zinc ascorbic acid Lovenox currently he does not qualify for steroids or remdesivir 5-droplet isolation We will follow on clinical condition and cultures to further adjust medication if needed Thank you for this consultation we will follow the patient along with you Time with Patient: Greater than 30
--- NOTE | 2022-10-10 01:50 | P.HPIM ---
History of Present Illness H&P Date: 10/09/22 Chief Complaint: Fever Patient is a 66 female with known history of hypothyroidism, history 3 of splenectomy status post injury presents ER with complaints of fever. Patient states that he has not been feeling an indelible fever and not feeling well. He was having body aches and generalized weakness. He started having diarrhea today as well. She is feeling tired as well. No complaints of chest pain or shortness of breath. No nausea or vomiting. Denies abdominal pain. Chest x-ray showed no acute cardiopulmonary process Laboratory data showed Review of Systems Constitutional: Patient does have fever, no chills, generalized weakness and body aches fatigue. Abdomen: Patient denied any nausea or vomiting or abd. pain. Diarrhea this m orning. Cardiovascular: Patient denies any chest pain or short of breath no palpitations. Respiratory: patient denied any cough . no sputum production. No shortness of breath Neurologic: Patient denied any numbness or tingling headache. Musculoskeletal: Patient denies any complaints of joint swelling or deformity. Skin: Negative Psychiatric: Negative Endocrine: No heat or cold intolerance. No recent weight gain. Genitourinary: No dysuria or hematuria. All other 14 point ROS negative except the above Past Medical History Past Medical History: Thyroid Disorder Additional Past Medical History / Comment(s): neuropathy History of Any Multi-Drug Resistant Organisms: None Reported Past Surgical History: Adenoidectomy, Appendectomy, Section, Orthopedic Surgery, Tonsillectomy Additional Past Surgical History / Comment(s): splenectomy,cataract Past Psychological History: No Psychological Hx Reported Smoking Status: Never smoker Past Alcohol Use History: None Reported Past Drug Use History: None Reported Medications and Allergies Home Medications Medication Instructions Recorded Confirmed Type Bio D Mulsion Forte Supplement 1 tab PO AC-BRKFST 10/08/22 10/08/22 History Bio-C Plus 1000 Supplement 1 tab PO BID-W/MEALS 10/08/22 10/08/22 History Diclofenac Sodium 50 mg PO TID-W/MEALS 10/08/22 10/08/22 History Healthy Bones Supplement 1 tab PO BID-W/MEALS 10/08/22 10/08/22 History Immutone Supplement 1 tab PO W/LUNCH 10/08/22 10/08/22 History Iosol Supplement 4 tab PO W/BRKFST 10/08/22 10/08/22 History Levothyroxine Sodium [Synthroid] 50 mcg PO DAILY 10/08/22 10/08/22 History Magnesium Plus (Unknown Strength) 1 tab PO BID-W/MEALS 10/08/22 10/08/22 History Enzo-Stim Supplement 1 tab PO W/BRKFST 10/08/22 10/08/22 History Enzo-Stim Supplement 2 tab PO W/LUNCH 10/08/22 10/08/22 History Pa623 Supplement 1 dose PO DAILY 10/08/22 10/08/22 History Sym-Pack Supplement 1 tab PO BID-W/MEALS 10/08/22 10/08/22 History Thyrostim Supplement 1 tab PO W/BRKFST 10/08/22 10/08/22 History Allergies Allergy/AdvReac Type Severity Reaction Status Date / Time cortisone Allergy Unknown Verified 10/08/22 19:49 Sulfa (Sulfonamide Allergy Unknown Verified 10/08/22 19:49 Antibiotics) Childhood Physical Exam Vitals: Vital Signs Temp Pulse Pulse Resp BP BP Pulse Ox 10/09/22 08:00 98.3 F 62 16 108/72 94 L 10/09/22 06:27 68 16 107/68 94 L 10/09/22 02:48 98.3 F 62 18 103/60 95 10/09/22 01:12 60 18 108/70 93 L 10/08/22 22:00 70 20 115/70 98 10/08/22 21:00 80 20 116/80 96 10/08/22 20:00 80 16 140/80 95 10/08/22 19:00 66 20 148/88 98 10/08/22 18:00 68 16 145/90 98 10/08/22 17:58 72 20 141/88 98 10/08/22 16:29 98.8 F 85 20 146/83 94 L Intake and Output 10/08/22 10/09/22 10/09/22 22:59 06:59 14:59 Intake Total 360 Balance 360 Intake: Oral 360 Other: # Voids 2 Weight 106.594 kg PHYSICAL EXAMINATION: Patient is lying in the bed comfortably, no acute distress, awake alert and oriented.. HEENT: Normocephalic. Neck is supple. Pupils reactive. Nostrils clear. Oral cavity is moist. Neck reveals no JVD, carotid bruits, or thyromegaly. CHEST EXAMINATION: Trachea is central. Symmetrical expansion. Lung greco clear to auscultation and percussion. CARDIAC: Normal S1, S2 with no gallops. No murmurs ABDOMEN: Soft. Bowel sounds present. Nontender. No organomegaly. No abdominal bruits. Extremities: reveal no edema. No clubbing or cyanosis Neurologically awake, alert, oriented x3 with well-coordinated movements. No focal deficits noted Skin: No rash or skin lesions. Psychiatric: Coperative. Nonsuicidal, Musculoskeletal: No joint swelling or deformity. Normal range of motion. Results CBC & Chem 7: 10/08/22 17:50 10/08/22 17:50 Labs: Abnormal Lab Results - Last 24 Hours (Table) 10/08/22 10/08/22 10/08/22 Range/Units 16:52 16:52 17:50 C-Reactive Protein 1.7 H (<1.0) mg/dL Urine Protein 1+ H (Negative) Urine Ketones 2+ H (Negative) Urine Blood Moderate H (Negative) Ur Leukocyte Esterase Small H (Negative) Urine WBC 6 H (0-5) /hpf Urine Mucus Many H (None) /hpf SARS-CoV-2 (PCR) Detected A (Not Detectd) Thrombosis Risk Factor Assmnt - DVT/VTE Prophylaxis DVT/VTE Prophylaxis: Pharmacologic Prophylaxis ordered Assessment and Plan Assessment: Fever and generalized weakness and body aches Acute COVID-19 infection 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 Continue with multivitamin supplementation and DVT prophylaxis. Patient is currently on room air. Did have diarrhea this morning. Antibiotics have been discontinued and follow-up procalcitonin level. Follow-up CRP and LDH. Continue symptomatic management and anticipate discharge in next 24 hours with more clinical improvement.
[2022-10-10] MEDS: ACETAMINOPHEN TAB 500 MG TAB PO PRN (06:25)
[2022-10-10 07:59] VITALS: BP 115/75; PULSE 84; TEMP 98.8
[2022-10-10] MEDS: ENOXAPARIN 40 MG/0.4 ML SYRINGE SQ SCH ×2 (08:29→08:34)
[2022-10-10] MEDS: IBUPROFEN 600 MG TAB PO SCH (08:29)
[2022-10-10] MEDS: ZINC SULFATE 220 MG CAP PO SCH (08:29)
[2022-10-10] MEDS: ASCORBIC ACID 500 MG TAB PO SCH (08:29)
[2022-10-10 11:21] LABS: ALT 25 U/L (8-44); AST 37 U/L (13-35); African American GFR (CKD) 99.8 (60.0-200.0); Albumin/Globulin Ratio 1.67 (1.60-3.17); Alkaline Phosphatase 67 U/L (41-126); BUN/Creat Ratio 15.03 Ratio (12.00-20.00); Calcium 8.8 mg/dL (8.7-10.3); Carbon Dioxide 24.5 mmol/L (20.0-27.5); Chloride 105 mmol/L (96-109); Globulin 2.4 g/dL (1.6-3.3); Glucose 98 mg/dL (70-110); LDH 204 U/L (120-246); Non-African American GFR(CKD) 86.1 (60.0-200.0); Potassium 4.2 mmol/L (3.5-5.5); Sodium 141 mmol/L (135-145); Total Bilirubin <0.15 mg/dL (0.30-1.20); Total Protein 6.4 g/dL (6.2-8.2)
[2022-10-10 12:24] LABS: Basophils # (A) 0.06 X 10*3/uL (0.00-0.10); Basophils % (A) 1.2 %; Eosinophils # (A) 0.03 X 10*3/uL (0.04-0.35); Eosinophils % (A) 0.6 %; HCT 35.6 % (37.2-46.3); HGB 11.4 g/dL (12.0-15.0); Immature Grans, Automated 0.2 %; Lymphocytes # (A) 1.97 X 10*3/uL (0.90-5.00); Lymphocytes % (A) 40.4 %; MCH 29.8 pg (27.0-32.0); MCV 93.2 fL (80.0-97.0); Monocytes # (A) 0.67 X 10*3/uL (0.20-1.00); Monocytes % (A) 13.7 %; NRBC Per 100 WBC 0 /100 WBCS (0.0-0.0); Neutrophils # (A) 2.14 X 10*3/uL (1.80-7.70); Neutrophils % (A) 43.9 %; Platelet Count 199 X 10*3/uL (140-440); RBC 3.82 X 10*6/uL (4.10-5.20); RDW 15.7 % (11.5-14.5); WBC 4.88 X 10*3/uL (4.50-10.00)
--- NOTE | 2022-10-10 13:45 | P.PN ---
Subjective Progress Note Date: 10/10/22 Principal diagnosis: COVID 19 Patient is a 66-year-old female with a past medical history taken for hypothyroidism the patient also have a splenectomy presenting to the ER for evaluation of fever , patient did have mild sore throat has been diagnosed with acute covid 19 infection chest x-ray was negative for any acute infiltrate and the patient was not hypoxic On today's evaluation that is 10/10/2022, the patient denies having any fever or any chills, patient denies having any headache no chest pain or shortness of breath or cough no nausea no vomiting no abdominal pain or diarrhea feeling better wants to go home Objective - Vital Signs Vital signs: Vital Signs Temp 98.8 F 10/10/22 07:00 Pulse 84 10/10/22 08:00 Resp 16 10/10/22 08:00 BP 115/75 10/10/22 07:00 Pulse Ox 94 L 10/10/22 07:00 FiO2 Intake & Output 10/09/22 10/10/22 10/10/22 18:59 06:59 18:59 Intake Total 478 Balance 478 Weight 106.594 kg Intake: Oral 478 Other: Voiding Method Toilet Toilet Toilet # Voids 3 3 - Exam GENERAL DESCRIPTION: An elderly female up in the chair in no distress RESPIRATORY SYSTEM: Unlabored breathing , decreased breath sounds at bases HEART: S1 S2 regular rate and rhythm , ABDOMEN: Soft , no tenderness - Labs CBC & Chem 7: 10/10/22 07:35 10/10/22 07:35 Labs: Abnormal Lab Results - Last 24 Hours (Table) 10/10/22 Range/Units 07:35 Total Bilirubin <0.15 L (0.30-1.20) mg/dL AST 37 H (13-35) U/L C-Reactive Protein 1.20 H (0.00-0.80) mg/dL Microbiology - Last 24 Hours (Table) 10/08/22 17:50 Blood Culture - Preliminary Blood No Growth after 24 hours Assessment and Plan (1) Coronavirus infection Current Visit: Yes Status: Acute Code(s): B34.2 - CORONAVIRUS INFECTION, UNSPECIFIED SNOMED Code(s): 594070173 Plan: 1patient presented to hospital with fever rigors and chills generalized body aches headache mild URI symptoms and also have a mild cough secondary to COVID- 19 infection in this patient chest x-ray was negative for acute infiltrate patient not hypoxic or need for supplemental oxygen treatment is mostly supportive and clinically no evidence of any secondary bacterial pneumonia 2Patient did have a normal procalcitonin, CRP is trending down 3 patient will be advised supportive treatment with zinc ascorbic acid , and no need for steroids and advised a total of 10 day for isolation Patient did have multiple questions and concerns were answered in Layman terms Time with Patient: Less than 30
--- NOTE | 2022-10-13 20:35 | P.DS ---
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 Patient will follow-up with Dr. Luna in the outpatient setting upon discharge. Patient is to continue with vitamin and zinc supplements on discharge. Total time taken is greater than 35 minutes. Hospital course This is a 66-year-old female who was recently admitted with fever along with generalized weakness and body aches and was found to have Covid. Patient being monitored and maintained on vitamin and zinc supplements. Patient will be going home today. Patient instructed to follow-up with primary care provider this week. Currently no reports of chest pain, shortness of breath, or palpitations. Patient is afebrile. No reports of nausea or vomiting and patient is tolerating diet. Patient will be discharged home today. Physical exam: Gen: This is a 66-year-old female who is awake, alert and oriented 3, well- developed, well-nourished, obese HEENT: Head is atraumatic, normocephalic. Pupils equal, round. Sclerae is anicteric. NECK: Supple. No JVD. No lymphadenopathy. No thyromegaly. LUNGS: Clear to auscultation. No wheezes or rhonchi. No intercostal retractions. HEART: Regular rate and rhythm. No murmur. ABDOMEN: Soft. Bowel sounds are present. No masses. No tenderness. EXTREMITIES: No pedal edema. No calf tenderness. NEUROLOGICAL: Patient is awake, alert and oriented x3. Cranial nerves 2 through 12 are grossly intact. Please refer to medication reconciliation sheet for a list of medications. The impression and plan of care has been dictated by Susan Hernandez, Nurse Practitioner as directed. Dr. Lydia MD I have performed a history and examination and MDM of this patient, discussed the same with the dictator, and agree with the dictator's assessment and plan as written ,documented as a scribe. Based on total visit time, I have performed more than 50% of the visit. Patient Condition at Discharge: Good Plan - Discharge Summary New Discharge Prescriptions: New Acetaminophen Tab [Tylenol] 500 mg PO Q6HR PRN tab PRN Reason: Fever And/ Or Pain Ibuprofen [Motrin] 600 mg PO TID #30 tab Zinc Sulfate [Orazinc] 220 mg PO DAILY 14 Days #14 cap Ascorbic Acid [Vitamin C] 1,000 mg PO DAILY #60 tab Continue Bio-C Plus 1000 Supplement 1 tab PO BID-W/MEALS Enzo-Stim Supplement 1 tab PO W/BRKFST Iosol Supplement 4 tab PO W/BRKFST Levothyroxine Sodium [Synthroid] 50 mcg PO DAILY Diclofenac Sodium 50 mg PO TID-W/MEALS Thyrostim Supplement 1 tab PO W/BRKFST Sym-Pack Supplement 1 tab PO BID-W/MEALS Pa623 Supplement 1 dose PO DAILY Enzo-Stim Supplement 2 tab PO W/LUNCH Magnesium Plus (Unknown Strength) 1 tab PO BID-W/MEALS Immutone Supplement 1 tab PO W/LUNCH Healthy Bones Supplement 1 tab PO BID-W/MEALS Bio D Mulsion Forte Supplement 1 tab PO AC-BRKFST Discharge Medication List Bio D Mulsion Forte Supplement 1 tab PO AC-BRKFST 10/08/22 [History] Bio-C Plus 1000 Supplement 1 tab PO BID-W/MEALS 10/08/22 [History] Diclofenac Sodium 50 mg PO TID-W/MEALS 10/08/22 [History] Healthy Bones Supplement 1 tab PO BID-W/MEALS 10/08/22 [History] Immutone Supplement 1 tab PO W/LUNCH 10/08/22 [History] Iosol Supplement 4 tab PO W/BRKFST 10/08/22 [History] Levothyroxine Sodium [Synthroid] 50 mcg PO DAILY 10/08/22 [History] Magnesium Plus (Unknown Strength) 1 tab PO BID-W/MEALS 10/08/22 [History] Enzo-Stim Supplement 1 tab PO W/BRKFST 10/08/22 [History] Enzo-Stim Supplement 2 tab PO W/LUNCH 10/08/22 [History] Pa623 Supplement 1 dose PO DAILY 10/08/22 [History] Sym-Pack Supplement 1 tab PO BID-W/MEALS 10/08/22 [History] Thyrostim Supplement 1 tab PO W/BRKFST 10/08/22 [History] Acetaminophen Tab [Tylenol] 500 mg PO Q6HR PRN tab 10/10/22 [Rx] Ascorbic Acid [Vitamin C] 1,000 mg PO DAILY #60 tab 10/10/22 [Rx] Ibuprofen [Motrin] 600 mg PO TID #30 tab 10/10/22 [Rx] Zinc Sulfate [Orazinc] 220 mg PO DAILY 14 Days #14 cap 10/10/22 [Rx] Follow up Appointment(s)/Referral(s): Jluis Luna MD [Primary Care Provider] - 1-2 days Patient Instructions/Handouts: How To Wash Your Hands (GEN), COVID-19 (Coronavirus Disease 2019) (GEN), COVID-19: Slow the Coronavirus Spread (GEN) Activity/Diet/Wound Care/Special Instructions: Activity Limited until follow-up Continue taking medications as prescribed Continue to monitor for fevers and treat with Tylenol and/or Motrin Encourage fluids and rest Continue to isolate for a total of 10 days Discharge Disposition: HOME SELF-CARE
== END 2022-10-10 16:35 | disposition home or self-care (01) ==
LOC: EC 15:37 → 6NMEDSUR 18:43
PROVIDERS: ADMIT Hospitalist; ATTEND Hospitalist
DX: U07.1 COVID-19 (principal); E03.9 Hypothyroidism, unspecified; G62.9 Polyneuropathy, unspecified; Z90.81 Acquired absence of spleen; Z79.890 Hormone replacement therapy; Z88.2 Allergy status to sulfonamides
CPT/HCPCS: 96361 ×3; 96366; 96376; 96365; 96367; 96375; 99291; 36415; 80053 ×2; 85652; 83605; 83615; 83735; 84100; 84484; 85025 ×2; 85610; 85730; 86140 ×2; 81001; 87040; 84145; 87636; 71046; G0378 ×3; J1200 ×2; J0696 ×2; J0131; J1885

== ENCOUNTER → 2022-11-14 | Outpatient (CLI) | payer MEDICARE, OTHER ==
--- NOTE | 2022-11-14 09:26 | XR ---
EXAM TYPE: LUMBAR SPINE X RAY SERIES COMPARISON: 04/14/2020 HISTORY: Pain TECHNIQUE: 4 views are submitted. FINDINGS: Alignment is anatomic. The pedicles are intact. The transverse processes are intact. There is no s pondylolysis or spondylolisthesis. Curvature of the spine with grade 1 anterolisthesis of L4 on L5. Severe facet arthropathy mid and lower lumbar spine. Multilevel degenerative disc disease. Chronic ap pearing deformity of L is stable prior exam. IMPRESSION: 1. Diffuse osteopenia with multilevel degenerative hypertrophic changes most marked at levels L3-S1 w ith suspected bilateral foraminal enlargement in great 1 anterolisthesis L4 on L5 which is stable. French spect severe bilateral foraminal management recommend MRI. 2. Chronic appearing deformity of the L3 vertebral segment.
== END | disposition home or self-care (01) ==
LOC: RADXRMAIN 07:10
PROVIDERS: ATTEND Family Medicine
DX: M51.16 Intervertebral disc disorders with radiculopathy, lumbar region (principal); M47.26 Other spondylosis with radiculopathy, lumbar region; M85.88 Other specified disorders of bone density and structure, other site
CPT/HCPCS: 72110

== ENCOUNTER → 2023-01-01 | Outpatient (CLI) | payer MEDICARE, OTHER ==
--- NOTE | 2023-01-01 12:58 | MR ---
EXAMINATION TYPE: MR lumbar spine wo/w con DATE OF EXAM: 01/01/2023 COMPARISON: None HISTORY: Lower back pain, BLE radiculopathy. TECHNIQUE: Multiplanar, multisequence images of the lumbar spine were acquired without and with 9.5 mL intraveno us Gadavist gadolinium contrast. L1-L2: Mild decreased signal ossified compatible degenerative disc disease. Posterior disc bulge with mild effacement ventral thecal sac. No evidence of disc herniation or protrusion. No central stenosi s. Foramina are patent bilaterally. L2-L3: Mild decreased signal ossified compatible degenerative disc disease. Posterior disc bulge with mild effacement ventral thecal sac. No evidence of disc herniation or protrusion. No central stenosi s. Foramina are patent bilaterally. L3-L4: Mild decreased signal ossified compatible degenerative disc disease. Posterior disc bulge with mild effacement ventral thecal sac. No evidence of disc herniation or protrusion. No central stenosi s. Foramina are patent bilaterally. L4-L5: Mild decreased signal ossified compatible degenerative disc disease. No evidence of disc cassie iation or protrusion. No central stenosis. Foramina are patent bilaterally. L5-S1: Normal disc appearance without desiccation. No herniation, protrusion or disc bulging. No ca nal stenosis is present. Foramina are patent bilaterally. Lumbar segments are intact. No paraspinal masses are identified. Conus medullaris has a normal appe arance. Renal cystic changes seen. IMPRESSION: 1. Multilevel degenerative disc disease and disc bulging however there is no evidence for disc hernia tion or central stenosis. No foraminal encroachment. No pathologic enhancement identified.
== END | disposition home or self-care (01) ==
LOC: RADMRIMAIN 10:21
PROVIDERS: ATTEND Family Medicine
DX: M51.16 Intervertebral disc disorders with radiculopathy, lumbar region (principal)
CPT/HCPCS: 72158; A9585

== ENCOUNTER → 2023-06-05 | Outpatient (CLI) | payer MEDICARE ==
--- NOTE | 2023-06-05 15:56 | P.SLEEP ---
History of Present Illness DATE: 06/05/2023 CONSULTATION/NEW PATIENT EVALUATION HISTORY OF PRESENT ILLNESS/SLEEP-WAKE EVALUATION: 67-year-old lady had been evaluated in sleep center for possible obstructive sleep apnea hypopnea syndrome had been evaluated in the sleep center for possible obstructive sleep apnea hypopnea syndrome. SLEEP SCHEDULE: Usually sleep schedule from 910 PM until 45 AM. FALLING ASLEEP: No problems with falling asleep. DURING SLEEP: Patient sleeps in different positions with very loud snoring. Patient wakes up from sleep once with nocturia No history of hypnogogical hallucinations, sleep paralysis, or cataplexy. DURING THE DAY/WAKE STATE: Patient usually doesn't take naps. Wilton sleepiness scale is 2.[]. PAST MEDICAL HISTORY: Hypothyroidism, back problems. PAST SURGICAL HISTORY: Splenectomy secondary to trauma, , tonsillectomy and adenoidectomy. MEDICATIONS: Levothyroxine 50 g once a day, gabapentin 300 mg 3 times a day, duloxetine 20 mg twice a day. SOCIAL HISTORY: Negative for smoking or using alcohol. FAMILY HISTORY: Hypertension, stroke, headaches, thyroid problems. REVIEW OF SYSTEMS: Loud snoring, awakenings from sleep. No fevers. No double vision. No recent chest pain. No shortness of breath. No abdominal pain. No bleeding episodes. No blood in urine. No seizure episodes. PHYSICAL EXAMINATION: GENERAL: A pleasant patient without any distress. VITAL SIGNS: BP 136/84 , HR 72 , RR 16 , weight 221 pounds, height 5 foot 4.5 inches, body mass index 37.3 . HEENT: PERRLA, EOMI. Evaluation of oropharynx showed tongue protrudes midline, low position of soft palate Mallampati 3. NECK: Supple. No JVD. Thyroid is not palpable. 15-1/4 inches in circumference. LUNGS: Clear to percussion and to auscultation. Good air exchange. No wheezing or rhonchi. HEART: S1, S2 regular. No murmurs, gallops or rubs. ABDOMEN: Soft and nontender. Bowel sounds are present. No organomegaly appreciated. EXTREMITIES: No clubbing or cyanosis. REGIONAL EDUCATION COORDINATOR: Awake, alert, and oriented x3. Cranial nerves 2 to 7 intact. There is no fasciculation or atrophy noted. No focal deficits observed. ASSESSMENT: 1. Loud snoring, awakenings from sleep with episodes of choking, small oropharyngeal airspace Mallampati 3. Obstructive sleep apnea hypopnea syndrome. 2. Obesity, BMI 37.3. 3. Hypothyroidism. 4. Back problems. 5 status post splenectomy after trauma. 6 . Status post tonsillectomy and adenoidectomy. PLAN: 1. Polysomnography for evaluation of patient's breathing during sleep. Home sleep apnea test which was done by another institution about 1 year ago was negative. 2. Following plan after reading sleep study. Patient is aware of civil and criminal liability for unsafe driving. 3. Sleep hygiene with regular sleep time for at least 7.5-8 hours. 4. No driving if feeling sleepiness. 6. Watching and losing weight. Thank you very much for referring this patient for consultation. Sincerely, Luigi Braxton MD, PhD, FAASM. Diplomat of [place] [employer], Sleep Medicine Board by [place] [employer] [place] [employer] Officer of [facility] [place] Past Medical History Past Medical History: Thyroid Disorder Additional Past Medical History / Comment(s): neuropathy History of Any Multi-Drug Resistant Organisms: None Reported Past Surgical History: Adenoidectomy, Appendectomy, Section, Orthopedic Surgery, Tonsillectomy Additional Past Surgical History / Comment(s): splenectomy,cataract Past Psychological History: No Psychological Hx Reported Smoking Status: Never smoker Past Alcohol Use History: None Reported Past Drug Use History: None Reported Medications and Allergies Home Medications Medication Instructions Recorded Confirmed Type Bio D Mulsion Forte Supplement 1 tab PO AC-BRKFST 10/08/22 10/08/22 History Bio-C Plus 1000 Supplement 1 tab PO BID-W/MEALS 10/08/22 10/08/22 History Diclofenac Sodium 50 mg PO TID-W/MEALS 10/08/22 10/08/22 History Healthy Bones Supplement 1 tab PO BID-W/MEALS 10/08/22 10/08/22 History Immutone Supplement 1 tab PO W/LUNCH 10/08/22 10/08/22 History Iosol Supplement 4 tab PO W/BRKFST 10/08/22 10/08/22 History Levothyroxine Sodium [Synthroid] 50 mcg PO DAILY 10/08/22 10/08/22 History Magnesium Plus (Unknown Strength) 1 tab PO BID-W/MEALS 10/08/22 10/08/22 History Enzo-Stim Supplement 1 tab PO W/BRKFST 10/08/22 10/08/22 History Enzo-Stim Supplement 2 tab PO W/LUNCH 10/08/22 10/08/22 History Pa623 Supplement 1 dose PO DAILY 10/08/22 10/08/22 History Sym-Pack Supplement 1 tab PO BID-W/MEALS 10/08/22 10/08/22 History Thyrostim Supplement 1 tab PO W/BRKFST 10/08/22 10/08/22 History Acetaminophen Tab [Tylenol] 500 mg PO Q6HR PRN tab 10/10/22 Rx Ascorbic Acid [Vitamin C] 1,000 mg PO DAILY #60 tab 10/10/22 Rx Ibuprofen [Motrin] 600 mg PO TID #30 tab 10/10/22 Rx Zinc Sulfate [Orazinc] 220 mg PO DAILY 14 Days #14 cap 10/10/22 Rx Allergies Allergy/AdvReac Type Severity Reaction Status Date / Time cortisone Allergy Unknown Verified 10/08/22 19:49 Sulfa (Sulfonamide Allergy Unknown Verified 10/08/22 19:49 Antibiotics) Childhood Sleep Note - Sleep Note Sleep Note: Temperature: Pulse Rate: Respiratory Rate: Blood Pressure: SpO2: Height: Weight: BMI: Neck Circumference:
== END ==
LOC: 3 N SLEEP 15:20
PROVIDERS: ATTEND Internal Medicine
DX: G47.33 Obstructive sleep apnea (adult) (pediatric) (principal); E66.9 Obesity, unspecified; E03.9 Hypothyroidism, unspecified; Z90.81 Acquired absence of spleen; Z90.89 Acquired absence of other organs; Z88.2 Allergy status to sulfonamides; Z68.37 Body mass index [BMI] 37.0-37.9, adult; Z88.8 Allergy status to other drugs, medicaments and biological substances
CPT/HCPCS: 99211

== ENCOUNTER → 2023-11-04 | Outpatient (CLI) | payer MEDICARE ==
--- NOTE | 2023-11-04 10:51 | XR ---
EXAMINATION TYPE: XR knee complete RT DATE OF EXAM: 11/04/2023 COMPARISON: NONE HISTORY: Pain TECHNIQUE: Three views are submitted. FINDINGS: Diffuse osteopenia. There is a small suprapatellar bursal fluid collection. Mild narrowing with donato nal spurring of the patellofemoral joint and medial compartment of the knee joint. Osseous structures are intact. No acute fracture seen. IMPRESSION: 1. Mild osteoarthritis. 2. Small suprapatellar bursal fluid collection.
== END | disposition home or self-care (01) ==
LOC: RADXRMAIN 10:16
PROVIDERS: ATTEND Family Medicine
DX: M17.11 Unilateral primary osteoarthritis, right knee (principal); M23.91 Unspecified internal derangement of right knee

== ENCOUNTER → 2023-12-25 | Outpatient (CLI) | payer MEDICARE ==
--- NOTE | 2023-12-25 14:52 | US ---
EXAMINATION TYPE: US kidneys/renal and bladder DATE OF EXAM: 12/25/2023 COMPARISON: 10/20/2018 CLINICAL INDICATION: Female, 68 years old with history of N28.2 CYS KIDNEY; Follow up left renal cyst . EXAM MEASUREMENTS: Right Kidney: 9.9 x 5.4 x 4.2 cm Left Kidney: 12.0 x 5.3 x 5.5 cm estimated Right Kidney: lower medial anechoic lesion = 3.4 x 3.5 x 2.4 cm Left Kidney: lower pole cystic lesion = 10.9 x 9.3 x 7.5 cm Bladder: distended, anechoic Bilateral Jets seen There is no evidence for hydronephrosis at this point in time. No nephrolithiasis is seen. . The u rinary bladder is anechoic. Bilateral ureteral jets are seen. IMPRESSION: 1. No solid renal mass, renal calcification or hydronephrosis. 2. Unremarkable urinary bladder. 3. Stable large 11 cm left renal cyst. 4. 3.5 cm simple cortical cyst of the right kidney.
--- NOTE | 2023-12-29 08:55 | MM ---
Reason for Exam: Screening (asymptomatic). Last mammogram was performed 2 year(s) and 11 month(s) ago. Patient History: Menarche at age 13. First Full-Term at age 24. Postmenopausal. Patient used Estrogen for 5 years. Risk Values: Lindsey 5 year model risk: 1.5%. NCI Lifetime model risk: 5.2%. Prior Study Comparison: 01/24/2020 Right Diagnostic Mammogram, [facility]. 10/10/2020 Right Diagnostic Mammogram, [facility]. 01/10/2021 Bilateral Diagnostic Mammogram, [facility]. Tissue Density: The breasts are heterogeneously dense, which may obscure small masses. Findings: Analyzed By CAD. There is no suspicious group of microcalcifications or new suspicious mass in either breast. Stable chronic nodularity. Overall Assessment: Benign, BI-RAD 2 Management: Screening Mammogram of both breasts in 1 year. . Patient should continue monthly self-breast exams. A clinical breast exam by your physician is recommended on an annual basis. This exam should not preclude additional follow-up of suspicious palpable abnormalities. Note on Lindsey scores and lifetime risk: 1. A Lindsey score greater than 3% is considered moderate risk. If this is the case, consider specialist referral to assess eligibility for a risk reducing agent. 2. If overall lifetime risk for the development of breast cancer is 20% or higher, the patient may qualify for future screening with alternating mammogram and breast MRI. Electronically signed and approved by: Tomasz Cortez M.D. Radiologis
== END | disposition home or self-care (01) ==
LOC: RADUSWWP 14:07
PROVIDERS: ATTEND Family Medicine
DX: Z12.31 Encounter for screening mammogram for malignant neoplasm of breast (principal); N28.1 Cyst of kidney, acquired; Z78.0 Asymptomatic menopausal state
CPT/HCPCS: 76770; 77067

== ENCOUNTER → 2024-05-26 | Outpatient (CLI) | payer MEDICARE ==
[2024-05-28 12:13] LABS: Amit + Nort 35 ng/mL (90-250); Nortriptyline 35 ng/mL (50-140)
== END | disposition home or self-care (01) ==
LOC: LABWHC1 11:35
PROVIDERS: ATTEND Psychiatry & Neurology Psychiatry
DX: Z51.81 Encounter for therapeutic drug level monitoring (principal); Z79.899 Other long term (current) drug therapy
CPT/HCPCS: 36415; 80335